=== PATIENT | female | born 2000 | race Caucasian/White ===

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

== ENCOUNTER 2021-07-02 12:18 | Emergency (ER) | payer BC, OTHER ==
[~2021-07-02] VITALS: Ht 165.1 cm; Wt 113.4 kg
[2021-07-02 12:50] VITALS: BP 148/66
== END 2021-07-02 13:29 | disposition left against medical advice (07) ==
LOC: ED 12:18
DX: R10.9 Unspecified abdominal pain (principal); Z53.21 Procedure and treatment not carried out due to patient leaving prior to being seen by health care provider

== ENCOUNTER 2022-07-02 10:11 | Emergency (ER) | payer BC, OTHER ==
[~2022-07-02] VITALS: Ht 165.1 cm; Wt 113.4 kg
[2022-07-02 10:21] VITALS: BP 145/98
[2022-07-02] MEDS ORDERED: NAPROXEN250 MG PO (11:06)
[2022-07-02] MEDS ORDERED: TYLENOL325 M1 PO (11:06)
== END 2022-07-02 11:27 | disposition home or self-care (01) ==
LOC: ED 10:11
DX: S89.91XA Unspecified injury of right lower leg, initial encounter (principal); Z88.0 Allergy status to penicillin; Z88.1 Allergy status to other antibiotic agents; W51.XXXA Accidental striking against or bumped into by another person, initial encounter; Y93.72 Activity, wrestling; Y92.89 Other specified places as the place of occurrence of the external cause; Y99.8 Other external cause status